=== PATIENT | female | born 1970 | race Caucasian/White ===

== ENCOUNTER → 2022-01-22 | Emergency (ER) | payer OTHER ==
[~2022-01-22] VITALS: Ht 167.6 cm; Wt 112.9 kg
== END | disposition home or self-care (01) ==
LOC: ER 15:01
DX: T14.90XA Injury, unspecified, initial encounter (principal); V49.9XXA Car occupant (driver) (passenger) injured in unspecified traffic accident, initial encounter; Y93.9 Activity, unspecified; Y92.413 State road as the place of occurrence of the external cause; Y99.9 Unspecified external cause status; Z88.0 Allergy status to penicillin

== ENCOUNTER 2022-02-19 10:20 | Emergency (ER) | payer OTHER ==
[~2022-02-19] VITALS: Ht 167.6 cm; Wt 112.9 kg
[~2022-02-19 10:20] MED LIST: DICLOFENAC SOD100 MG PO
== END 2022-02-19 14:21 | disposition home or self-care (01) ==
LOC: ER 10:20
DX: U07.1 COVID-19 (principal); Z88.0 Allergy status to penicillin